=== PATIENT | male | born 1950 | race African-American/Black ===

== ENCOUNTER 2019-07-08 02:36 | Inpatient (IN) | payer BC, MEDICARE ==
[2019-07-08 02:54] LABS: #Basophils 0.1 thou/uL (0.0-0.2); #Eosinphils 0.2 thou/uL (0.0-0.7); #Lymphocytes 2.7 thou/uL (1.20-3.40); #Neutrophils 5.4 thou/uL (1.40-6.50); %Basophils 1.3 % (0.0-1.0); %Eosinophils 2.4 % (0.0-10.0); %Lymphocytes 28.2 % (21.0-51.0); %Monocytes 10.5 % (0.0-10.0); %Neutrophils 57.6 % (42.0-75.0); Hemoglobin 13.7 g/dL (14.0-18.0); Mean Corpuscular HGB CONC 34.2 g/dL (32.0-36.0); Mean Corpuscular Hemoglobin 27.5 pg (27.0-31.0); Mean Corpuscular Volume 80.4 fL (78.0-98.0); Mean Platelet Volume 8.4 fL (7.4-10.4); Platelet Count 318 thou/uL (130-400); RBC Distribution Width 14.2 % (11.5-14.5); Red Blood Cell (RBC) Count 4.97 mill/uL (4.70-6.10); White Blood Cell (WBC) Count 9.4 thou/uL (4.8-10.8)
[2019-07-08 03:07] LABS: INR-International Normal Ratio 0.8; PTT 28.7 SEC (22.9-36.1); Prothrombin Time 11.5 SEC (12.0-14.7)
[2019-07-08 03:08] LABS: ALT (SGPT) 20 U/L (8-55); AST (SGOT) 21 U/L (5-34); Albumin 4.3 g/dL (3.4-4.8); Alkaline Phosphatase 84 U/L (40-110); Anion Gap 15 mmol/L (10-20); BUN (Urea Nitrogen) 17 mg/dL (8.4-25.7); Bilirubin, Total Less than 0.2 mg/dL (0.2-1.2); CK (CPK) 282 U/L (30-200); Calc. Creatinine Clearance 0 mL/min (70-130); Calcium 8.9 mg/dL (7.8-10.44); Carbon Dioxide 18 mmol/L (23-31); Chloride 111 mmol/L (98-107); Estimated GFR-MDRD 72; Globulin 2.9 g/dL (2.4-3.5); Glucose 111 mg/dL (80-115); Protein, Total 7.2 g/dL (5.8-8.1); Sodium 140 mmol/L (136-145)
[2019-07-08] MEDS ORDERED: Aspirin 325 MG TAB ONE (04:21)
--- NOTE | 2019-07-08 05:12 | HP ---
CHIEF COMPLAINT: Left-sided numbness and weakness. HISTORY OF PRESENT ILLNESS: Mr. Pickett is a 69-year-old male with past medical history of hypertension, not on any medications, cigarette smoker, presented to the emergency room with left-sided numbness which started around 9:00 p.m. last night. Apparently, the patient reports that he later went to bed and then woke up at 1 and was not able to get out of bed. He denies vision changes or speech difficulties or facial numbness or tingling. Initially in the ER, his blood pressure was 180/110, spontaneously it went down to 150/90. Workup in the emergency room including CT of the brain and CTA of brain and neck, no acute finding. The patient symptoms improved in the ER. According to him, his symptoms have been coming and going since started last night. The patient is being in the hospital for further management. PAST MEDICAL HISTORY: Hypertension, not on any medications. PAST SURGICAL HISTORY: Colonoscopy. SOCIAL HISTORY: He smokes half pack per day. Drinks alcohol socially. FAMILY HISTORY: Mother had a stroke in her 70s. ALLERGIES: NO KNOWN ALLERGIES. HOME MEDICATIONS: None. REVIEW OF SYSTEMS: Review of 14 systems negative except what is mentioned in the history of present illness. PHYSICAL EXAMINATION: GENERAL: The patient is awake, alert, does not appear to be in acute distress. VITAL SIGNS: Blood pressure 173/95, pulse is 82, respiratory rate is 16, pulse oximetry is 96% on room air, temperature 98.5. HEAD AND NECK: Normocephalic, atraumatic. NECK: Supple. No JVD. CHEST: Fair bilateral air entry. HEART: S1, S2. Regular. ABDOMEN: Soft, nontender. Bowel sounds present. NEUROLOGIC: Awake, alert, and oriented x3. Motor strength 4/5 left upper extremity, 4/5 left lower extremity, 5/5 right upper extremity, 5/5 right lower extremity. Sensation intact. PSYCHIATRIC: Normal mood. EXTREMITIES: No clubbing, no cyanosis. GENITOURINARY: No suprapubic tenderness. No flank tenderness. LABORATORY DATA: CT brain, CTA of brain and neck reported as no acute finding as per ER physician. Labs reviewed. CBC reviewed, unremarkable. ASSESSMENT AND PLAN: 1. CVA, acute?/TIA? 2. Hypertension. 3. Cigarette smoker. PLAN: 1. Admit. 2. Tele monitoring. 3. Frequent neuro checks. 4. Aspirin. 5. Monitor blood pressure. 6. Check lipid profile. 7. Statin. 8. PT/OT eval in a.m. 9. Consult Neurology in a.m. for evaluation and further recommendations. 10. 2D echo. 11. MRI of the brain. 12. DVT prophylaxis as appropriate. 13. Expected length of stay, at least 1 midnight if patient is stable and further workup negative. Job ID: [id number]
[2019-07-08 07:15] VITALS: BMI 25.3
--- NOTE | 2019-07-08 08:32 | CT ---
PRELIMINARY REPORT/[facility]/EMERGENCY AFTER HOURS PROCEDURE Receipt of this report by the clinical staff was confirmed with Preeti Lyons MD by Tulio Sorensen on Jul 08, 2019 03:13:00 CDT. Addendum electronically signed by Rafaela Sorensen on July 08, 2019 3:13:38 AM CDT EXAM: CT Head Without Intravenous Contrast. CLINICAL HISTORY: Gunjan presents to the ED with c/o left arm and left leg numbness/tingling onset at 2100 last night. Pt reports he later went to bed and then woke up at 0100 and wasn't able to get out of bed. Pt denies vision changes, speech difficulties, or facial numbness/tingling. Pt reports he smokes. TECHNIQUE: Axial computed tomography images of the head/brain without intravenous contrast. COMPARISON: None provided. FINDINGS: BRAIN: No acute intraparenchymal hemorrhage. No mass lesion. No CT evidence for acute territorial inf arct. No midline shift or extra-axial collection. Subcortical and periventricular white matter hypodensities. Likely prior lacunar infarcts in the deep santoyo matter. VENTRICLES: No hydrocephalus. ORBITS: The orbits are unremarkable. SINUSES AND MASTOIDS: Opacification of the right maxillary sinus. The paranasal sinuses and mastoid air cells are otherwise clear. SOFT TISSUES: No significant facial or scalp soft tissue swelling evident. No radiopaque foreign body is seen. BONES: No acute skull fracture. IMPRESSION: No acute intracranial abnormality. No CT evidence of large territorial infarct. Recommend MRI for f urther evaluation Sequela of chronic small vessel ischemic disease with likely prior lacunar infarcts in the right basa l ganglia and left centrum semiovale. ELECTRONICALLY SIGNED BY: Thierno Boudreaux DO Jul 08, 2019 3:11:44 AM CDT This report is intended for review by the ordering physician only, in accordance of law. If you recei ve this report in error, please call [facility] at [phone]. FINAL REPORT CT head noncontrast 07/08/2019 performed on emergency basis at 0252 hours HISTORY: Left arm and leg numbness. Tingling. COMPARISON: 03/05/2006. FINDINGS: Agree with the preliminary report by Dr. Boudreaux from [facility]. No acute intracranial abnormalities are apparent. Since the prior study, lacunar infarcts in the basal ganglia and deep periventricular white matter have developed and the right posterior frontal peripheral white matter. There is no mass effect. Opacification of the partially visualized right maxillary sinus. Motion artifact at the brain base. Code QA. Transcribed Date/Time: 07/08/2019 8:44 AM
--- NOTE | 2019-07-08 08:32 | RAD ---
Chest one view HISTORY: CVA. Dyspnea. FINDINGS: No comparison. Cardiac silhouette is magnified by projection. Pulmonary vasculature is unre markable. Mediastinum is midline with aortic calcification. No lobar consolidation or evidence of pneumothorax. radiation monitor leads overlie the chest. IMPRESSION: Atherosclerosis. No active cardiopulmonary abnormalities are otherwise demonstrated.
--- NOTE | 2019-07-08 08:37 | CT ---
PRELIMINARY REPORT/[facility]/EMERGENCY AFTER HOURS PROCEDURE Receipt of this report by the clinical staff was confirmed with Preeti Lyons MD by Tulio Sorensen on Jul 08, 2019 03:16:00 CDT. Addendum electronically signed by Rafaela Sorensen on July 08, 2019 3:16:07 AM CDT EXAM: CTA Head and Neck with Intravenous Contrast. CLINICAL HISTORY: Gunjan presents to the ED with c/o left arm and left leg numbness/tingling onset at 2100 last night. Pt reports he later went to bed and then woke up at 0100 and wasn't able to get out of bed. Pt denies vision changes, speech difficulties, or facial numbness/tingling. Pt reports he smokes. TECHNIQUE: Axial CTA images of the head and neck performed with intravenous contrast. MIP reconstructed images w ere created and reviewed. Note: Per PQRS, the description of internal carotid artery percent stenosis, including 0 percent or n ormal exam, is based on [place] Symptomatic Carotid Endarterectomy Trial (NASCET) criteria. CONTRAST: With; ISOVUE 370,100mL COMPARISON: None provided. FINDINGS: CTA NECK: COMMON CAROTID ARTERIES No significant stenosis. No dissection or occlusion. INTERNAL CAROTID ARTERIES No stenosis by NASCET criteria. No dissection or occlusion. VERTEBRAL ARTERIES No significant stenosis. No dissection or occlusion. CTA HEAD: ANTERIOR CEREBRAL ARTERIES No significant stenosis. No occlusion. No aneurysm. MIDDLE CEREBRAL ARTERIES No significant stenosis. No occlusion. No aneurysm. POSTERIOR CEREBRAL ARTERIES No significant stenosis. No occlusion. No aneurysm. BASILAR ARTERY No significant stenosis. No occlusion. No aneurysm. OTHER: SOFT TISSUES No acute finding. No masses or lymphadenopathy. BONES No acute osseous abnormality. Right maxillary sinus opacification. IMPRESSION: Unremarkable CTA of the head and neck. ELECTRONICALLY SIGNED BY: Thierno Boudreaux DO Jul 08, 2019 3:13:38 AM CDT This report is intended for review by the ordering physician only, in accordance of law. If you recei ve this report in error, please call [facility] at [phone]. FINAL REPORT CT arteriogram neck with IV contrast and 3-D imaging CT arteriogram head with IV contrast and 3-D imaging CT brain with IV contrast 07/08/2019 performed on emergency basis at 0258 hours HISTORY: CVA. Left body numbness and tingling. FINDINGS: Agree with the preliminary report by Dr. Boudreaux from [facility]. No acute vascular abno rmalities are apparent. No enhancing brain lesions. Incidental note is made of an old, partially healed injury of the left clavicular head and very heter ogeneous low density prominence of the thyroid gland which may represent a nodular goiter. Code QA. Transcribed Date/Time: 07/08/2019 8:48 AM
[2019-07-08] MEDS: Aspirin 325 mg Enteric Coated Tablet PO SCH (09:26)
[2019-07-08] MEDS: Heparin 5,000 UNITS/ML VIAL SC SCH ×2 (09:26→20:56)
--- NOTE | 2019-07-08 12:27 | MRI ---
Exam: Brain MRI without IV contrast: HISTORY: Left arm and leg numbness and tingling left-sided weakness, TIA versus stroke There are several very small punctate foci of increased signal on diffusion-weighted images in the ri ght basal ganglia and paraventricular region, the largest of which is approximately 1 cm in size with abnormal lower signal on ADC map evidence for several very small foci of acute infarct. Old left centrum semiovale lacunar infarct. Atrophy and chronic white matter ischemic change. Right maxillary sinus mucosal disease as well as changes in the sphenoid sinuses and less marked changes in the ethmoid sinuses. Opacification of the right mastoid. IMPRESSION: Several small punctate foci of acute infarct changes in the right basal ganglia and periventricular r egion. Sinus mucosal disease. Right mastoid abnormal opacification. No mass or bleed or other acute process.
--- NOTE | 2019-07-08 12:41 | CON ---
DATE OF TELEMEDICINE CONSULTATION: 07/08/2019 CHIEF COMPLAINT: Numbness and weakness. HISTORY OF PRESENT ILLNESS: The patient is a 69-year-old man, who is known to be hypertensive. He has poor compliance with blood pressure medications and has not been monitoring his blood pressure. Per , the patient developed left arm and leg numbness and he felt it about the same since onset yesterday and the numbness comes and goes. He never had a previous CVA. His symptoms started around 9 p.m. last night and he woke up at 1 a.m., was unable to get out of bed. At the time he presented, he was not a candidate for tPA per primary admitting note. At this time, the patient has had deficit on the left side since last night. PREVIOUS MEDICAL HISTORY: Hypertension. No diabetes or hypercholesterolemia. PAST SURGICAL HISTORY: Colonoscopy and polyp removal. FAMILY HISTORY: He has four sisters and four brothers, two brothers , one had leukemia, one has cancer. The one with leukemia in his 30s. Another brother at 65 from cancer. Mother at 77 from cancer. Father at 77 from lung cancer. The patient has 2 children, 40 and 47, 40 year old son has Crohn disease. SOCIAL HISTORY: He is a nonsmoker. No alcohol use. Lives with his . ALLERGIES: NO KNOWN DRUG ALLERGIES. MEDICATIONS: At home, none. REVIEW OF SYSTEMS: PULMONARY: Negative for shortness of breath and/or cough. GI: Negative for nausea, vomiting, or diarrhea. NEUROLOGIC: Positive for weakness and numbness. DERMATOLOGIC: Negative for skin changes. HEMATOLOGIC: Negative for bleeding diathesis. OPHTHALMOLOGIC: Negative for any visual deficit. LABORATORY DATA: His lab workup; white count 9.4, hemoglobin 13.7, hematocrit 39.9, and platelet count 318. Sodium 140, potassium 4, chloride 111, bicarb 18, BUN 17, creatinine 1.21, and glucose 111. CPK 282. Lipid profile is still pending and his CT of the head was completed and CT did not show any acute infarct or bleed. He is pending MRI. He does have lacunes in the basal ganglia and deep periventricular white matter and also the right posterior frontal periventricular white matter changes and CT angiogram was also reviewed and the patient's CT angiogram did not show any significant vaso-occlusive disease and echocardiogram was also completed and no significant abnormalities were present. The patient is pending MRI at the time of dictation and my visit with him. PHYSICAL EXAMINATION: VITAL SIGNS: Temperature 98.3, respiratory rate 15, O2 saturations 96%, blood pressure 150/94, and pulse is 70. GENERAL APPEARANCE: Well-built, well-nourished man, who is very pleasant. CHEST: Clear vesicular breathing. CARDIOVASCULAR: S1 and S2 heard. No murmurs. ABDOMEN: Soft. No organomegaly noted. NEUROLOGIC: Higher intellectual functions, normal orientation to time, place, and person. Appropriate conversation. Cranial nerves 2 through 12 normal extraocular movements. Pupil size was 2 mm bilaterally. He had left facial droop. Normal sensation of face. Normal hearing bilaterally. Motor examination, bulk normal. Tone decreased on the left side. Strength 2/5 proximally in the left upper extremity and distal 0/5, left lower extremity proximal and distal were 1/5. Diminished deep tendon reflexes throughout. Muscle groups tested are deltoid, biceps, triceps, wrist extension and flexion, finger extension and flexion, and iliopsoas, hamstrings, quadriceps, ankle dorsiflexion, and plantar flexion bilaterally. Sensory examination decreased sensation on the left face and left upper and lower extremities mainly. Cerebellar, normal on the right side and unable to assess on the left side due to weakness. IMPRESSION: The patient with history of sudden-onset left-sided numbness and weakness, who presented to the ER quite late and there was no vascular occlusion. He did not receive IV tPA and he has significant left arm and leg weakness with a facial droop. This is like along with some numbness. This is likely an internal capsule infarct. They are currently pending MRI. Treatment would be prevention and primarily conservative therapy. RECOMMENDATION: Consult PM and R for placement for rehab. Suggest aspirin with statin for stroke prophylaxis and blood pressure control. Please call me if you have further questions. Job ID: [id number] MTDD
[2019-07-08] MEDS ORDERED: Nicotine 21 MG PATCH TD SCH (12:45)
[2019-07-08] MEDS ORDERED: Iopamidol 370 76% 100 ML VIAL ONE (14:33)
[2019-07-08] MEDS ORDERED: Acetaminophen 325 MG TAB PO PRN (19:52)
[2019-07-08] MEDS: Atorvastatin Calcium 40 MG TAB PO SCH (20:56)
[2019-07-08] MEDS ORDERED: Melatonin 3 MG TAB PO PRN (21:17)
[2019-07-09 05:35] LABS: Cardiac Risk 4.2 (Less than 4.5)
[2019-07-09] MEDS: Nicotine 21 MG PATCH TD SCH (09:42)
[2019-07-09] MEDS: Aspirin 325 mg Enteric Coated Tablet PO SCH (09:42)
[2019-07-09] MEDS: Heparin 5,000 UNITS/ML VIAL SC SCH ×2 (09:42→20:25)
--- NOTE | 2019-07-09 17:06 | PDOC.HOSPP ---
- Subjective Encounter Date: 07/09/19 Encounter Time: 10:20 Subjective: pt up in bed no events overnight. - Objective Vital Signs & Weight: Vital Signs (12 hours) Temp Pulse Pulse Pulse Resp BP BP 07/09/19 15:07 98.8 F 84 16 07/09/19 11:55 78 80 145/98 H 181/105 H 07/09/19 11:09 98.7 F 82 16 07/09/19 10:14 78 80 145/98 H 181/105 H 07/09/19 08:00 97.8 F 80 16 BP Pulse Ox 07/09/19 15:07 142/92 H 97 07/09/19 11:55 07/09/19 11:09 149/93 H 98 07/09/19 10:14 07/09/19 08:00 166/98 H 98 Weight Weight 192 lb 4.8 oz I&O: 07/08/19 07/09/19 07/10/19 06:59 06:59 06:59 Intake Total 300 Balance 300 Result Diagrams: 07/08/19 02:40 07/08/19 02:40 Hospitalist ROS - Review of Systems Respiratory: denies: cough, dry, shortness of breath, hemoptysis, SOB with excertion, pleuritic pain, sputum, wheezing, other Cardiovascular: denies: chest pain, palpitations, orthopnea, paroxysmal noc. dyspnea, edema, light headedness, other Gastrointestinal: denies: nausea, vomiting, abdominal pain, diarrhea, constipation, melena, hematochezia, other - Medication Medications: Active Medications Generic Name Dose Route Start Last Admin Trade Name Kelq PRN Reason Stop Dose Admin Acetaminophen 650 mg 07/08/19 19:52 07/08/19 20:56 Tylenol PO 650 mg Q6H PRN Administration Headache, Aches or Pain Aspirin 325 mg 07/08/19 09:00 07/09/19 09:42 Ecotrin PO 325 mg DAILY CESAR Administration Atorvastatin Calcium 40 mg 07/08/19 21:00 07/08/19 20:56 Lipitor PO 40 mg HS CESAR Administration Heparin Sodium (Porcine) 5,000 units 07/08/19 09:00 07/09/19 09:42 Heparin SC 5,000 units Q12HR CESAR Administration Melatonin 3 mg 07/08/19 21:17 07/08/19 21:38 Melatonin PO 3 mg HS PRN Administration Insomnia Nicotine 21 mg 07/09/19 09:00 07/09/19 09:42 Nicoderm Patch TD 21 mg DAILY CEASR Administration - Exam ENT: negative: normocephalic atraumatic, no oropharyngeal lesions, moist mucosa , dry oral mucosa Neck: negative: supple, symmetric, no JVD, no thyromegaly, no lymphadenopathy, no carotid bruit, JVD Heart: negative: RRR, no murmur, no gallops, no rubs, normal peripheral pulses, irregular, diminshed peripheral pulses, murmur present, II/IV, III/IV Respiratory: negative: CTAB, no wheezes, no rales, no ronchi, normal chest expansion, no tachypnea, normal percussion, rales, rhonchi, tachypneic, wheezes Hosp A/P (1) Stroke Code(s): I63.9 - CEREBRAL INFARCTION, UNSPECIFIED Status: Acute (2) HTN (hypertension) Code(s): I10 - ESSENTIAL (PRIMARY) HYPERTENSION Status: Acute (3) Hypercholesteremia Code(s): E78.00 - PURE HYPERCHOLESTEROLEMIA, UNSPECIFIED Status: Acute - Plan pt on asa and statin. will continue. pt's mri indicated several small punctate foci. will ask neurology if we need to consult cardio for possible embolic stroke.
[2019-07-09] MEDS: Atorvastatin Calcium 40 MG TAB PO SCH (20:25)
[2019-07-09] MEDS: Melatonin 3 MG TAB PO PRN (21:36)
[2019-07-10] MEDS: Heparin 5,000 UNITS/ML VIAL SC SCH ×2 (08:51→20:35)
[2019-07-10] MEDS: Aspirin 325 mg Enteric Coated Tablet PO SCH (08:51)
[2019-07-10] MEDS: Nicotine 21 MG PATCH TD SCH (08:51)
[2019-07-10] MEDS: Atorvastatin Calcium 40 MG TAB PO SCH (20:34)
[2019-07-10] MEDS: Melatonin 3 MG TAB PO PRN (20:35)
--- NOTE | 2019-07-11 08:30 | PDOC.HOSPP ---
- Subjective Encounter Date: 07/10/19 Encounter Time: 10:00 Subjective: pt up at the side of the bed with PT. He has no complains. - Objective Vital Signs & Weight: Vital Signs (12 hours) Temp Pulse Resp BP BP Pulse Ox 07/11/19 07:17 97.7 F 88 16 147/92 H 93 L 07/11/19 04:38 98.6 F 86 16 127/83 100 07/10/19 23:39 98.3 F 88 16 140/95 H 96 07/10/19 20:35 95 Weight Weight 192 lb 4.8 oz I&O: 07/10/19 07/11/19 07/12/19 06:59 06:59 06:59 Intake Total 1575 780 Output Total 650 350 Balance 925 430 Result Diagrams: 07/08/19 02:40 07/08/19 02:40 Hospitalist ROS - Review of Systems Cardiovascular: denies: chest pain, palpitations, orthopnea, paroxysmal noc. dyspnea, edema, light headedness, other Gastrointestinal: denies: nausea, vomiting, abdominal pain, diarrhea, constipation, melena, hematochezia, other Genitourinary: denies: dysuria, frequency, incontinence, hematuria, retention, other - Medication Medications: Active Medications Generic Name Dose Route Start Last Admin Trade Name Freq PRN Reason Stop Dose Admin Acetaminophen 650 mg 07/08/19 19:52 07/08/19 20:56 Tylenol PO 650 mg Q6H PRN Administration Headache, Aches or Pain Aspirin 325 mg 07/08/19 09:00 07/10/19 08:51 Ecotrin PO 325 mg DAILY CESAR Administration Atorvastatin Calcium 40 mg 07/08/19 21:00 07/10/19 20:34 Lipitor PO 40 mg HS CESAR Administration Heparin Sodium (Porcine) 5,000 units 07/08/19 09:00 07/10/19 20:35 Heparin SC 5,000 units Q12HR CESAR Administration Melatonin 9 mg 07/09/19 21:18 07/10/19 20:35 Melatonin PO 9 mg HSPRN PRN Administration Insomnia Nicotine 21 mg 07/09/19 09:00 07/10/19 08:51 Nicoderm Patch TD 21 mg DAILY CESAR Administration - Exam Heart: negative: RRR, no murmur, no gallops, no rubs, normal peripheral pulses, irregular, diminshed peripheral pulses, murmur present, II/IV, III/IV Respiratory: negative: CTAB, no wheezes, no rales, no ronchi, normal chest expansion, no tachypnea, normal percussion, rales, rhonchi, tachypneic, wheezes Gastrointestinal: negative: soft, non-tender, non-distended, normal bowel sounds , no palpable masses, no hepatomegaly, no splenomegaly, no bruit, no guarding, no rigidity, tender to palpation, distended, diminished bowl sounds, voluntary guarding Extremities - other findings: left side weakness Hosp A/P (1) Stroke Code(s): I63.9 - CEREBRAL INFARCTION, UNSPECIFIED Status: Acute (2) HTN (hypertension) Code(s): I10 - ESSENTIAL (PRIMARY) HYPERTENSION Status: Acute (3) Hypercholesteremia Code(s): E78.00 - PURE HYPERCHOLESTEROLEMIA, UNSPECIFIED Status: Acute - Plan pt on asa and statin. will continue. pt's mri indicated several small punctate foci. will ask neurology if we need to consult cardio for possible embolic stroke. 07/09 per neurology stroke unlikely due to cardiac causes. will continue asa/ statin. He is SR on the monitor.
[2019-07-11] MEDS: Aspirin 325 mg Enteric Coated Tablet PO SCH (09:41)
[2019-07-11] MEDS: Nicotine 21 MG PATCH TD SCH (09:41)
[2019-07-11] MEDS: Heparin 5,000 UNITS/ML VIAL SC SCH (09:41)
[2019-07-11] MEDS ORDERED: Docusate 100 MG CAP PO SCH ×3 (10:43→21:00)
[2019-07-11] MEDS ORDERED: Polyethylene Glycol 3350 17 GM Packet PO SCH ×2 (10:44→11:15)
[2019-07-11 11:28] VITALS: BP 141/83; TEMP 98.6
--- NOTE | 2019-07-11 20:48 | DIS ---
DATE OF ADMISSION: 07/08/2019 DATE OF DISCHARGE: 07/11/2019 DISCHARGE DIAGNOSES: As of the followin. 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 2. Hypertension. 3. Hypercholesterolemia. HOSPITAL COURSE: The patient is a 69-year-old male who initially presented to the hospital with complaints of left-sided numbness and weakness. At this time, he underwent a stroke protocol including CTA, which was negative. The patient was put on aspirin and statin and at this time, Neurology was consulted. The patient underwent a stroke workup. Echo indicated an EF of 50% to 55% with mild mitral regurgitation, mild tricuspid regurgitation. He also had an MRI of brain, which indicated several small punctate foci of acute infarct changes in the right basal ganglia and periventricular region. At this time, I did talk with Neurology who stated that most likely if the patient is in sinus rhythm, which he is, this is most likely secondary to hypertension related. The patient again remained to be in sinus rhythm throughout the hospital stay. He was then discharged to an inpatient rehabilitation. His CTA indicated was unremarkable. HOME MEDICATIONS: Will be as of the followin. Aspirin 325 daily. 2. Atorvastatin 40 mg daily. 3. Nicotine patch. 4. MiraLAX. 5. Tums as needed. PHYSICAL EXAMINATION: VITAL SIGNS: Temperature of 98.6, heart rate 85, respirations 16, O2 saturation 93% on room air, and blood pressure 141/83. GENERAL: He is awake, alert, and oriented x3. Does not appear in distress. CV: S1 and S2 present. No murmurs, rubs, or gallops. LUNGS: Clear to auscultation. NEUROLOGIC: Neurovascular mccarthy, he does have significant left-sided deficits and his diet has been made to soft given the fact that he is having difficulty time chewing on his left side. Job ID: [id number]
[2019-07-12] MEDS ORDERED: Polyethylene Glycol 3350 17 GM Packet PO SCH (09:00)
== END 2019-07-11 13:24 | DRG 65 ==
LOC: ERS 02:36 → 2SE 04:34 → OBSVTOIN 19:13
PROVIDERS: ADMIT Internal Medicine; ATTEND Internal Medicine
DX: I63.9 Cerebral infarction, unspecified (principal); G81.94 Hemiplegia, unspecified affecting left nondominant side; I10 Essential (primary) hypertension; E78.00 Pure hypercholesterolemia, unspecified; I08.1 Rheumatic disorders of both mitral and tricuspid valves; F17.210 Nicotine dependence, cigarettes, uncomplicated; R20.0 Anesthesia of skin; R29.810 Facial weakness; R40.2362 Coma scale, best motor response, obeys commands, at arrival to emergency department; R40.2142 Coma scale, eyes open, spontaneous, at arrival to emergency department; R40.2252 Coma scale, best verbal response, oriented, at arrival to emergency department; R29.707 NIHSS score 7
CPT/HCPCS: 36415; 36416; 70450; 70496; 70498; 70551; 71045; 80053; 80061; 82550; 84484; 85025; 85610; 85730; 93005; 93306; J1644; Q9967

== ENCOUNTER 2019-09-28 10:28 | Outpatient (CLI) | payer MEDICARE ==
--- NOTE | 2019-09-28 12:23 | CT ---
LOW DOSE CT SCAN OF THE CHEST WITHOUT IV CONTRAST FOR LUNG CANCER SCREENING: Date: 09/28/2019 HISTORY: 69-year-old male with nicotine dependence with current use. FINDINGS: There is a 3.0 mm peripheral solid parenchymal nodule in the right upper lobe. A tiny calcified granu vishal is seen in the left lower lobe. Emphysematous changes are seen with upper lobe dominance. No pneumothoraces, and no pleural or pericardial effusions are seen. There are calcified lymph nodes in the mediastinum and hilar regions. There are vascular calcifications without evidence of aneurysma l dilatation of the thoracic aorta. There are degenerative changes in the spine. A right thyroid lobe nodule is present. IMPRESSION: Lung-RADS Category 2: Benign. Category S: Thyroid nodule should be evaluated with ultrasound. RECOMMENDATION: A follow-up LDCT of the chest is recommended in 12 months. POS: [facility]
== END 2019-09-28 10:29 | disposition home or self-care (01) ==
LOC: BICCT 10:28
PROVIDERS: ATTEND Family Medicine
DX: F17.210 Nicotine dependence, cigarettes, uncomplicated (principal); E04.1 Nontoxic single thyroid nodule
CPT/HCPCS: G0297

== ENCOUNTER 2019-12-24 14:55 | Outpatient (CLI) | payer MEDICARE ==
--- NOTE | 2019-12-24 15:57 | RAD ---
LEFT FOOT 3 VIEWS: Date: 12/24/2019 HISTORY: Left foot swelling and pain. FINDINGS: Diffuse bone demineralization with prominent osteoarthrosis changes, particularly at the first metata rsophalangeal joint. No overt acute fracture or dislocation. Evidence for vascular calcifications. 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 POS: [facility]
== END 2019-12-24 14:56 | disposition home or self-care (01) ==
LOC: SCSRAD 14:55
PROVIDERS: ATTEND Nurse Practitioner Family
DX: M79.672 Pain in left foot (principal); M19.072 Primary osteoarthritis, left ankle and foot; M81.0 Age-related osteoporosis without current pathological fracture
CPT/HCPCS: 36415; 84550

== ENCOUNTER 2021-04-11 11:37 | Inpatient (IN) | payer MEDICARE ==
[2021-04-11 12:15] LABS: ALT (SGPT) 16 U/L (8-55); AST (SGOT) 18 U/L (5-34); Albumin 3.8 g/dL (3.4-4.8); Alkaline Phosphatase 83 U/L (40-110); Anion Gap 14 mmol/L (10-20); BUN (Urea Nitrogen) 11 mg/dL (8.4-25.7); Bilirubin, Total 0.2 mg/dL (0.2-1.2); CK (CPK) 198 U/L (30-200); Calc. Creatinine Clearance 0 mL/min (70-130); Calcium 9.1 mg/dL (7.8-10.44); Carbon Dioxide 17 mmol/L (23-31); Chloride 113 mmol/L (98-107); Globulin 2.8 g/dL (2.4-3.5); Glucose 83 mg/dL (83-110); Lipase 69 U/L (8-78); Potassium 4.1 mmol/L (3.5-5.1); Protein, Total 6.6 g/dL (5.8-8.1); Sodium 140 mmol/L (136-145)
[2021-04-11] MEDS ORDERED: Clopidogrel Bisulfate 75 MG TAB ONE (12:18)
[2021-04-11] MEDS ORDERED: Aspirin Chewable 81 MG TAB ONE (12:18)
[2021-04-11 12:46] LABS: #Eosinphils 0.2 thou/uL (0.0-0.7); #Lymphocytes 2.2 thou/uL (1.20-3.40); #Monocytes 0.6 thou/uL (0.11-0.59); #Neutrophils 4.6 thou/uL (1.40-6.50); %Basophils 0.3 % (0.0-1.0); %Eosinophils 2.9 % (0.0-10.0); %Lymphocytes 28.5 % (21.0-51.0); %Monocytes 8.1 % (0.0-10.0); %Neutrophils 60.2 % (42.0-75.0); Anisocytosis SLIGHT = 6-15 cells (100X) (0-5/hpf); MDiff Complete? YES; Mean Corpuscular Hemoglobin 23.6 pg (27.0-31.0); Mean Corpuscular Volume 73.7 fL (78.0-98.0); Mean Platelet Volume 8.8 fL (7.4-10.4); Microcytosis SLIGHT = 6-15 cells (100X) (0-5/hpf); Platelet Count 323 thou/uL (130-400); Platelet Morphology Comment Appears Adequate; Polychromasia SLIGHT = 2-3 cells (100X) (0-2/hpf); Red Blood Cell (RBC) Count 4.24 mill/uL (4.70-6.10); White Blood Cell (WBC) Count 7.7 thou/uL (4.8-10.8)
[2021-04-11 12:53] LABS: INR-International Normal Ratio 1.2; Prothrombin Time 14.9 sec (12.0-14.7)
[2021-04-11 12:54] LABS: PTT 32.7 sec (22.9-36.1)
[2021-04-11 13:09] LABS: Bilirubin Negative (Negative); Blood, Urine Negative (Negative); Clarity Clear (Clear); Glucose, Urine (Dipstick) Normal (Negative); Ketone, Urine Negative (Negative); Leukocyte Negative Leu/uL (Negative); Nitrite Negative (Negative); Protein, Urine (Dipstick) Negative (Neg-Trace); Specific Gravity, Urine 1.013 (1.002-1.036); Urobilinogen Normal mg/dL (Less than 2)
[2021-04-11] MEDS ORDERED: hydrALAZINE 20 MG/ML VIAL SLOW IVP PRN (13:17)
[2021-04-11 14:43] LABS: SARS-CoV-2 NAA Rapid Test Not Detected (NotDetected)
[2021-04-11] MEDS: Nicotine 14 MG PATCH TD SCH (16:16)
[2021-04-11 16:20] VITALS: BMI 25.0
[2021-04-11] MEDS: Atorvastatin Calcium 40 MG TAB PO SCH (20:58)
[2021-04-12] MEDS: Melatonin 3 MG TAB PO PRN ×2 (00:22→23:35)
[2021-04-12 06:11] LABS: Cardiac Risk 2.7 (Less than 4.5); Cholesterol 93 mg/dl (< 200 Desired); HDL Cholesterol 35 mg/dL (>60 Neg Risk); LDL Cholesterol, Calculated 45 mg/dL; Magnesium 1.7 mg/dL (1.6-2.6); Triglycerides 67 mg/dL (Less than 150)
[2021-04-12 06:34] LABS: Thyroid Stimulating Hormone 0.54 uIU/mL (0.35-4.94)
[2021-04-12] MEDS ORDERED: Magnesium 2 GM/50 ML 2 GM in Premix Bag 1 BAG IVPB SCH (07:15)
[2021-04-12] MEDS: Folic Acid 1 MG TAB PO SCH (07:57)
[2021-04-12] MEDS ORDERED: Aspirin 81 mg Enteric Coated Tablet PO SCH (09:00)
[2021-04-12] MEDS ORDERED: Clopidogrel Bisulfate 75 MG TAB PO SCH (09:00)
[2021-04-12] MEDS: Nicotine 14 MG PATCH TD SCH (14:30)
[2021-04-12] MEDS: Atorvastatin Calcium 40 MG TAB PO SCH (21:10)
[2021-04-13 05:33] LABS: #Basophils 0.1 thou/uL (0.0-0.2); #Eosinphils 0.2 thou/uL (0.0-0.7); #Lymphocytes 1.7 thou/uL (1.20-3.40); #Monocytes 0.7 thou/uL (0.11-0.59); #Neutrophils 3.7 thou/uL (1.40-6.50); %Basophils 0.8 % (0.0-1.0); %Eosinophils 3.7 % (0.0-10.0); %Lymphocytes 27.2 % (21.0-51.0); %Monocytes 10.7 % (0.0-10.0); %Neutrophils 57.6 % (42.0-75.0); Hemoglobin 9.2 g/dL (14.0-18.0); Mean Corpuscular HGB CONC 32.1 g/dL (32.0-36.0); Mean Corpuscular Hemoglobin 23.4 pg (27.0-31.0); Mean Corpuscular Volume 72.9 fL (78.0-98.0); Mean Platelet Volume 8.7 fL (7.4-10.4); Platelet Count 304 thou/uL (130-400); RBC Distribution Width 17.4 % (11.5-14.5); Red Blood Cell (RBC) Count 3.95 mill/uL (4.70-6.10); White Blood Cell (WBC) Count 6.3 thou/uL (4.8-10.8)
[2021-04-13 06:06] LABS: Anion Gap 9 mmol/L (10-20); BUN (Urea Nitrogen) 12 mg/dL (8.4-25.7); Calc. Creatinine Clearance 75 mL/min (70-130); Calcium 8.6 mg/dL (7.8-10.44); Carbon Dioxide 21 mmol/L (23-31); Chloride 113 mmol/L (98-107); Glucose 97 mg/dL (83-110); Potassium 3.8 mmol/L (3.5-5.1); Sodium 139 mmol/L (136-145)
[2021-04-13] MEDS: Folic Acid 1 MG TAB PO SCH (09:16)
[2021-04-13] MEDS ORDERED: Clopidogrel Bisulfate 75 MG TAB PO SCH (10:30)
[2021-04-13] MEDS ORDERED: Aspirin 81 mg Enteric Coated Tablet PO SCH (10:30)
[2021-04-13] MEDS: Nicotine 14 MG PATCH TD SCH (12:18)
[2021-04-13] MEDS ORDERED: Zolpidem Tartrate 5 MG TAB PO PRN (20:40)
[2021-04-13] MEDS: Atorvastatin Calcium 40 MG TAB PO SCH (21:04)
[2021-04-14 06:32] LABS: #Eosinphils 0.2 thou/uL (0.0-0.7); #Lymphocytes 1.6 thou/uL (1.20-3.40); #Monocytes 0.6 thou/uL (0.11-0.59); #Neutrophils 4.4 thou/uL (1.40-6.50); %Basophils 0.4 % (0.0-1.0); %Lymphocytes 23.3 % (21.0-51.0); %Monocytes 9.4 % (0.0-10.0); %Neutrophils 63.9 % (42.0-75.0); Anion Gap 11 mmol/L (10-20); BUN (Urea Nitrogen) 11 mg/dL (8.4-25.7); Calc. Creatinine Clearance 69 mL/min (70-130); Calcium 8.9 mg/dL (7.8-10.44); Carbon Dioxide 20 mmol/L (23-31); Chloride 111 mmol/L (98-107); Glucose 93 mg/dL (83-110); Hemoglobin 10.2 g/dL (14.0-18.0); Mean Corpuscular HGB CONC 31.4 g/dL (32.0-36.0); Mean Corpuscular Hemoglobin 23.1 pg (27.0-31.0); Mean Corpuscular Volume 73.5 fL (78.0-98.0); Mean Platelet Volume 8.6 fL (7.4-10.4); Platelet Count 321 thou/uL (130-400); Potassium 3.7 mmol/L (3.5-5.1); RBC Distribution Width 17.6 % (11.5-14.5); Red Blood Cell (RBC) Count 4.41 mill/uL (4.70-6.10); Sodium 138 mmol/L (136-145); White Blood Cell (WBC) Count 6.8 thou/uL (4.8-10.8)
[2021-04-14 06:50] LABS: Hemoglobin A1c 5.4 % (4.0-6.0)
[2021-04-14] MEDS: Folic Acid 1 MG TAB PO SCH (08:32)
[2021-04-14] MEDS ORDERED: Aspirin Chewable 81 MG TAB PO SCH (09:00)
[2021-04-14] MEDS ORDERED: Clopidogrel Bisulfate 75 MG TAB PO SCH (09:00)
[2021-04-14 11:50] VITALS: BP 131/70; TEMP 97.5
[2021-04-14] MEDS: Nicotine 14 MG PATCH TD SCH (15:38)
== END 2021-04-14 14:51 | disposition home health service (06) | DRG 64 ==
LOC: ERS 11:37 → ERHOLD 12:36 → NEURO 15:21 → OBSVTOIN 04-12 17:18
PROVIDERS: ADMIT Internal Medicine; ATTEND Nurse Practitioner Family
DX: I63.81 Other cerebral infarction due to occlusion or stenosis of small artery (principal); I62.02 Nontraumatic subacute subdural hemorrhage; I69.354 Hemiplegia and hemiparesis following cerebral infarction affecting left non-dominant side; E78.5 Hyperlipidemia, unspecified; F17.210 Nicotine dependence, cigarettes, uncomplicated; E78.00 Pure hypercholesterolemia, unspecified; D64.9 Anemia, unspecified; E53.8 Deficiency of other specified B group vitamins; I08.3 Combined rheumatic disorders of mitral, aortic and tricuspid valves; Z20.822 Contact with and (suspected) exposure to COVID-19; I69.334 Monoplegia of upper limb following cerebral infarction affecting left non-dominant side; Z79.82 Long term (current) use of aspirin; Z79.899 Other long term (current) drug therapy; I69.398 Other sequelae of cerebral infarction
CPT/HCPCS: 36415; 36416; 70450; 70544; 70551; 71045; 80048; 80053; 80061; 81003; 82550; 82607; 82746; 83036; 83690; 83735; 84443; 84484; 85025; 85610; 85730; 93005; 93306; 93880; 96374; G0378; J3475; U0002

== ENCOUNTER 2021-05-07 07:27 | Outpatient (CLI) | payer MEDICARE | END 2021-05-07 07:28 | disposition home or self-care (01) | LOC: BICULT 07:27 | PROVIDERS: ATTEND Family Medicine | DX: R35.89 Other polyuria (principal); N28.1 Cyst of kidney, acquired; K76.89 Other specified diseases of liver | CPT/HCPCS: 76700; 76856 ==

== ENCOUNTER 2021-09-15 11:02 | Inpatient (IN) | payer MEDICARE ==
[2021-09-15 11:35] LABS: #Basophils 0.1 thou/uL (0.0-0.2); #Eosinphils 0.1 thou/uL (0.0-0.7); #Lymphocytes 2.2 thou/uL (1.20-3.40); #Monocytes 0.7 thou/uL (0.11-0.59); #Neutrophils 5.2 thou/uL (1.40-6.50); %Eosinophils 1.6 % (0.0-10.0); %Lymphocytes 26.9 % (21.0-51.0); %Monocytes 8.3 % (0.0-10.0); %Neutrophils 62.2 % (42.0-75.0); Hemoglobin 7.3 g/dL (14.0-18.0); Mean Corpuscular HGB CONC 29.4 g/dL (32.0-36.0); Mean Corpuscular Hemoglobin 16.1 pg (27.0-31.0); Mean Corpuscular Volume 54.8 fL (78.0-98.0); Mean Platelet Volume 5.2 fL (7.4-10.4); Platelet Count 476 thou/uL (130-400); RBC Distribution Width 22.3 % (11.5-14.5); Red Blood Cell (RBC) Count 4.52 mill/uL (4.70-6.10); White Blood Cell (WBC) Count 8.3 thou/uL (4.8-10.8)
[2021-09-15 11:39] LABS: ALT (SGPT) 10 U/L (8-55); AST (SGOT) 24 U/L (5-34); Albumin 4.1 g/dL (3.4-4.8); Alkaline Phosphatase 72 U/L (40-110); Anion Gap 13 mmol/L (10-20); BUN (Urea Nitrogen) 12 mg/dL (8.4-25.7); Bilirubin, Total 0.2 mg/dL (0.2-1.2); Calc. Creatinine Clearance 0 mL/min (70-130); Calcium 8.8 mg/dL (7.8-10.44); Carbon Dioxide 18 mmol/L (23-31); Chloride 114 mmol/L (98-107); Glucose 81 mg/dL (83-110); INR-International Normal Ratio 1.1; Potassium 4.7 mmol/L (3.5-5.1); Protein, Total 7.1 g/dL (5.8-8.1); Prothrombin Time 13.8 sec (12.0-14.7); Sodium 140 mmol/L (136-145)
[2021-09-15 11:40] LABS: Hypochromia MARKED = >30 cells (100X) (0-5/hpf); MDiff Complete? YES; Microcytosis MARKED = >30 cells (100X) (0-5/hpf); Platelet Morphology Comment Appears Increased; Polychromasia SLIGHT = 2-3 cells (100X) (0-2/hpf); Schistocytes SLIGHT = 2-5 cells (100X) (0-1/hpf); Target Cells SLIGHT = 2-5 cells (100X) (0-1/hpf)
[2021-09-15] MEDS ORDERED: Aspirin Chewable 81 MG TAB ONE (13:23)
[2021-09-15] MEDS ORDERED: hydrALAZINE 20 MG/ML VIAL SLOW IVP PRN (14:46)
[2021-09-15] MEDS ORDERED: Iopamidol-370 76% 500 ML 1 ML ONE (15:18)
[2021-09-15] MEDS: Bupropion 150 MG SR TAB PO SCH (20:41)
[2021-09-15] MEDS: Acetaminophen 325 MG TAB PO PRN (20:47)
[2021-09-15] MEDS ORDERED: traZODone HCl 50 MG TAB PO SCH (21:00)
[2021-09-16 06:02] LABS: Anion Gap 10 mmol/L (10-20); BUN (Urea Nitrogen) 10 mg/dL (8.4-25.7); Calc. Creatinine Clearance 69 mL/min (70-130); Calcium 8.5 mg/dL (7.8-10.44); Carbon Dioxide 21 mmol/L (23-31); Cardiac Risk 2.6 (Less than 4.5); Chloride 113 mmol/L (98-107); Cholesterol 90 mg/dl (< 200 Desired); Glucose 87 mg/dL (83-110); HDL Cholesterol 35 mg/dL (>60 Neg Risk); LDL Cholesterol, Calculated 39 mg/dL; Potassium 3.7 mmol/L (3.5-5.1); Sodium 140 mmol/L (136-145); Triglycerides 79 mg/dL (Less than 150)
[2021-09-16 06:54] LABS: #Basophils 0.1 thou/uL (0.0-0.2); #Eosinphils 0.2 thou/uL (0.0-0.7); #Lymphocytes 1.8 thou/uL (1.20-3.40); #Monocytes 0.6 thou/uL (0.11-0.59); #Neutrophils 3.7 thou/uL (1.40-6.50); %Basophils 0.9 % (0.0-1.0); %Eosinophils 3.5 % (0.0-10.0); %Lymphocytes 28.2 % (21.0-51.0); %Monocytes 8.9 % (0.0-10.0); %Neutrophils 58.5 % (42.0-75.0); Hemoglobin 6.2 g/dL (14.0-18.0); Hypochromia MODERATE=16-30 cells (100X) (0-5/hpf); MDiff Complete? YES; Mean Corpuscular HGB CONC 28.5 g/dL (32.0-36.0); Mean Corpuscular Hemoglobin 15.6 pg (27.0-31.0); Mean Corpuscular Volume 54.5 fL (78.0-98.0); Mean Platelet Volume 5.1 fL (7.4-10.4); Platelet Count 414 thou/uL (130-400); RBC Distribution Width 21.9 % (11.5-14.5); Red Blood Cell (RBC) Count 3.96 mill/uL (4.70-6.10); Target Cells SLIGHT = 2-5 cells (100X) (0-1/hpf); Tear Drops SLIGHT = 2-5 cells (100X) (0-1/hpf); White Blood Cell (WBC) Count 6.3 thou/uL (4.8-10.8)
[2021-09-16] MEDS ORDERED: Aspirin 300 MG Suppository PR SCH (09:00)
[2021-09-16] MEDS ORDERED: Enoxaparin Sodium 40 MG/0.4 ML SYRINGE SC SCH (09:00)
[2021-09-16 09:03] LABS: Reticulocyte Count 1.5 % (0.5-1.5)
[2021-09-16 09:05] LABS: Iron 9 ug/dL (65-175); Iron Binding Capacity, Total 313 mcg/dL (261-462)
[2021-09-16] MEDS: Nicotine 21 MG PATCH TD SCH (09:53)
[2021-09-16] MEDS: Bupropion 150 MG SR TAB PO SCH ×3 (09:53→20:50)
[2021-09-16] MEDS: Sodium Chloride 0.9% 1,000 ML IV SCH (10:05)
[2021-09-16 19:48] LABS: Hemoglobin 7.8 g/dL (14.0-18.0)
[2021-09-16] MEDS: Pantoprazole 40 MG VIAL IVP SCH (20:48)
[2021-09-16] MEDS ORDERED: diphenhydrAMINE 50 MG/ML VIAL IVP PRN (20:55)
[2021-09-16] MEDS: Scopolamine 1.5 mg/72 hour Patch TD SCH (21:21)
[2021-09-17] MEDS: Sodium Chloride 0.9% 1,000 ML IV SCH ×2 (01:22→16:32)
[2021-09-17] MEDS ORDERED: Iron Sucrose Complex 200 MG in Sodium Chloride 0.9% 100 ML IVPB ONE (07:44)
[2021-09-17] MEDS ORDERED: Iron, Sodium Ferric Gluconate 250 MG in Sodium Chloride 0.9% 250 ML 250 ML IVPB SCH (09:00)
[2021-09-17] MEDS: Nicotine 21 MG PATCH TD SCH (09:41)
[2021-09-17] MEDS: Bupropion 150 MG SR TAB PO SCH ×3 (09:41→20:54)
[2021-09-17] MEDS: Pantoprazole 40 MG VIAL IVP SCH ×2 (09:41→20:53)
[2021-09-17] MEDS ORDERED: metroNIDAZOLE 500 MG in Premix Bag 1 BAG IVPB SCH (14:54)
[2021-09-17] MEDS ORDERED: Clindamycin/D5W 600 MG in Premix Bag 1 BAG IVPB SCH (15:00)
[2021-09-17] MEDS: cefTRIAXone\\ROCEPHIN 1 GM in Sodium Chloride 0.9% 100 ML IVPB SCH (16:33)
[2021-09-17] MEDS ORDERED: Lorazepam 2 MG/ML VIAL SLOW IVP SCH ×2 (20:15→21:00)
[2021-09-17] MEDS: metroNIDAZOLE 500 MG in Premix Bag 1 BAG IVPB SCH (21:05)
[2021-09-18] MEDS: Sodium Chloride 0.9% 1,000 ML IV SCH ×3 (00:04→14:44)
[2021-09-18 04:04] LABS: Anion Gap 15 mmol/L (10-20); BUN (Urea Nitrogen) 10 mg/dL (8.4-25.7); Calc. Creatinine Clearance 69 mL/min (70-130); Calcium 8.2 mg/dL (7.8-10.44); Carbon Dioxide 15 mmol/L (23-31); Chloride 116 mmol/L (98-107); Glucose 97 mg/dL (83-110); Sodium 142 mmol/L (136-145)
[2021-09-18 04:53] LABS: #Basophils 0.1 thou/uL (0.0-0.2); #Eosinphils 0.1 thou/uL (0.0-0.7); #Lymphocytes 1.3 thou/uL (1.20-3.40); #Monocytes 1.2 thou/uL (0.11-0.59); #Neutrophils 11.7 thou/uL (1.40-6.50); %Basophils 0.6 % (0.0-1.0); %Eosinophils 0.3 % (0.0-10.0); %Lymphocytes 9.3 % (21.0-51.0); %Monocytes 8.2 % (0.0-10.0); %Neutrophils 81.5 % (42.0-75.0); Anisocytosis MODERATE=16-30 cells (100X) (0-5/hpf); Burr Cells SLIGHT = 2-5 cells (100X) (0-1/hpf); Hemoglobin 8.4 g/dL (14.0-18.0); Hypochromia MODERATE=16-30 cells (100X) (0-5/hpf); MDiff Complete? YES; Mean Corpuscular HGB CONC 29.3 g/dL (32.0-36.0); Mean Corpuscular Hemoglobin 17.2 pg (27.0-31.0); Mean Corpuscular Volume 58.6 fL (78.0-98.0); Mean Platelet Volume 5.4 fL (7.4-10.4); Microcytosis MODERATE=15-30 cells (100X) (0-5/hpf); Platelet Count 386 thou/uL (130-400); Platelet Morphology Comment Appears Adequate; Poikilocytosis SLIGHT = 6-15 cells (100X) (0-5/hpf); Polychromasia SLIGHT = 2-3 cells (100X) (0-2/hpf); RBC Distribution Width 25.6 % (11.5-14.5); Red Blood Cell (RBC) Count 4.89 mill/uL (4.70-6.10); Target Cells SLIGHT = 2-5 cells (100X) (0-1/hpf); White Blood Cell (WBC) Count 14.4 thou/uL (4.8-10.8)
[2021-09-18] MEDS: metroNIDAZOLE 500 MG in Premix Bag 1 BAG IVPB SCH ×3 (05:10→22:21)
[2021-09-18] MEDS ORDERED: Acetaminophen 650 MG Suppository PR SCH ×2 (06:00→21:00)
[2021-09-18] MEDS ORDERED: CEFAZOLIN 2 GM VIAL ONE (11:49)
[2021-09-18] MEDS ORDERED: Sodium Chloride 0.9% 100 ML ONE (11:49)
[2021-09-18] MEDS ORDERED: PROPOFOL 200 MG/20 ML VIAL ONE (11:57)
[2021-09-18] MEDS ORDERED: Lidocaine 1% PF 5 ML VIAL ONE (11:57)
[2021-09-18] MEDS ORDERED: Promethazine HCl 25 MG/ML VIAL IM PRN (12:45)
[2021-09-18] MEDS ORDERED: Ondansetron HCl/PF 4 MG/2 ML Vial IVP PRN (12:45)
[2021-09-18] MEDS ORDERED: Promethazine HCl 25 MG/ML VIAL IVPB PRN (12:45)
[2021-09-18 13:16] VITALS: BMI 22.1
[2021-09-18] MEDS: Bupropion 150 MG SR TAB PO SCH ×2 (14:14→22:22)
[2021-09-18] MEDS: Pantoprazole 40 MG VIAL IVP SCH ×2 (14:14→22:21)
[2021-09-18] MEDS: Nicotine 21 MG PATCH TD SCH (14:14)
[2021-09-18] MEDS: Acetaminophen 325 MG TAB PO PRN (14:41)
[2021-09-18] MEDS: cefTRIAXone\\ROCEPHIN 1 GM in Sodium Chloride 0.9% 100 ML IVPB SCH (14:42)
[2021-09-18 16:15] LABS: Hemoglobin A2 2.4 % (1.8-3.2); Hemoglobin F 0 % (0.0-2.0); Hemoglobin S 29.5 % (0.0)
[2021-09-18] MEDS: Atorvastatin Calcium 40 MG TAB PER TUBE SCH (22:21)
[2021-09-19] MEDS: Sodium Chloride 0.9% 1,000 ML IV SCH (04:39)
[2021-09-19 05:46] LABS: #Eosinphils 0.2 thou/uL (0.0-0.7); #Lymphocytes 1.2 thou/uL (1.20-3.40); #Monocytes 0.9 thou/uL (0.11-0.59); #Neutrophils 9.3 thou/uL (1.40-6.50); %Basophils 0.2 % (0.0-1.0); %Eosinophils 1.8 % (0.0-10.0); %Lymphocytes 10.4 % (21.0-51.0); %Monocytes 7.8 % (0.0-10.0); %Neutrophils 79.8 % (42.0-75.0); Critical Call w/ Read Back 3; Hemoglobin 7.4 g/dL (14.0-18.0); Mean Corpuscular HGB CONC 29.7 g/dL (32.0-36.0); Mean Corpuscular Hemoglobin 17.1 pg (27.0-31.0); Mean Corpuscular Volume 57.7 fL (78.0-98.0); Mean Platelet Volume 5.1 fL (7.4-10.4); Platelet Count 326 thou/uL (130-400); RBC Distribution Width 25.8 % (11.5-14.5); Red Blood Cell (RBC) Count 4.34 mill/uL (4.70-6.10); White Blood Cell (WBC) Count 11.7 thou/uL (4.8-10.8)
[2021-09-19] MEDS: metroNIDAZOLE 500 MG in Premix Bag 1 BAG IVPB SCH ×3 (05:46→20:54)
[2021-09-19 05:48] LABS: Anion Gap 11 mmol/L (10-20); BUN (Urea Nitrogen) 7 mg/dL (8.4-25.7); Calc. Creatinine Clearance 62 mL/min (70-130); Calcium 8.1 mg/dL (7.8-10.44); Carbon Dioxide 20 mmol/L (23-31); Chloride 118 mmol/L (98-107); Glucose 95 mg/dL (83-110); Potassium 3.6 mmol/L (3.5-5.1); Sodium 145 mmol/L (136-145)
[2021-09-19] MEDS: Pantoprazole 40 MG VIAL IVP SCH (08:57)
[2021-09-19] MEDS: Bupropion 150 MG SR TAB PO SCH (08:57)
[2021-09-19] MEDS: Nicotine 21 MG PATCH TD SCH (08:57)
[2021-09-19] MEDS: Aspirin Chewable 81 MG TAB PER TUBE SCH (08:57)
[2021-09-19] MEDS ORDERED: Docusate Sodium 100 MG/10 ML UDCUP PO SCH (12:30)
[2021-09-19] MEDS ORDERED: Docusate Sodium 100 MG/10 ML UDCUP PER TUBE SCH (12:30)
[2021-09-19] MEDS: cefTRIAXone\\ROCEPHIN 1 GM in Sodium Chloride 0.9% 100 ML IVPB SCH (14:54)
[2021-09-19] MEDS: buPROPion 75 MG TAB PER TUBE SCH ×2 (14:54→20:54)
[2021-09-19] MEDS: Docusate Sodium 100 MG/10 ML UDCUP PER TUBE SCH (20:53)
[2021-09-19] MEDS: Scopolamine 1.5 mg/72 hour Patch TD SCH (20:53)
[2021-09-19] MEDS: Atorvastatin Calcium 40 MG TAB PER TUBE SCH (20:54)
[2021-09-19] MEDS: traZODone HCl 50 MG TAB PER TUBE PRN (21:30)
[2021-09-20] MEDS: metroNIDAZOLE 500 MG in Premix Bag 1 BAG IVPB SCH ×3 (05:17→22:10)
[2021-09-20 05:50] LABS: Anion Gap 9 mmol/L (10-20); BUN (Urea Nitrogen) 8 mg/dL (8.4-25.7); Calc. Creatinine Clearance 70 mL/min (70-130); Calcium 8.3 mg/dL (7.8-10.44); Carbon Dioxide 22 mmol/L (23-31); Chloride 117 mmol/L (98-107); Glucose 127 mg/dL (83-110); Potassium 3.6 mmol/L (3.5-5.1); Sodium 144 mmol/L (136-145)
[2021-09-20 05:51] LABS: #Eosinphils 0.3 thou/uL (0.0-0.7); #Lymphocytes 1.1 thou/uL (1.20-3.40); #Neutrophils 7.8 thou/uL (1.40-6.50); %Eosinophils 3.4 % (0.0-10.0); %Lymphocytes 10.6 % (21.0-51.0); %Monocytes 9.4 % (0.0-10.0); %Neutrophils 76.7 % (42.0-75.0); Anisocytosis MODERATE=16-30 cells (100X) (0-5/hpf); Elliptocytes SLIGHT = 2-5 cells (100X) (0-1/hpf); Hemoglobin 7.3 g/dL (14.0-18.0); Hypochromia MODERATE=16-30 cells (100X) (0-5/hpf); MDiff Complete? YES; Mean Corpuscular HGB CONC 30.1 g/dL (32.0-36.0); Mean Corpuscular Hemoglobin 17.6 pg (27.0-31.0); Mean Corpuscular Volume 58.6 fL (78.0-98.0); Mean Platelet Volume 5.1 fL (7.4-10.4); Microcytosis MODERATE=15-30 cells (100X) (0-5/hpf); Platelet Count 309 thou/uL (130-400); Platelet Morphology Comment Appears Adequate; Polychromasia SLIGHT = 2-3 cells (100X) (0-2/hpf); RBC Distribution Width 27.9 % (11.5-14.5); Red Blood Cell (RBC) Count 4.11 mill/uL (4.70-6.10); Target Cells MODERATE= 6-15 cells (100X) (0-1/hpf); Tear Drops SLIGHT = 2-5 cells (100X) (0-1/hpf); White Blood Cell (WBC) Count 10.2 thou/uL (4.8-10.8)
[2021-09-20] MEDS: Acetaminophen 650 MG/20.3 ML UDCUP PER TUBE PRN (07:44)
[2021-09-20] MEDS: Guaifenesin DM 100-10/5 ML UDCUP PER TUBE PRN ×2 (07:45→16:04)
[2021-09-20] MEDS: Aspirin Chewable 81 MG TAB PER TUBE SCH (09:38)
[2021-09-20] MEDS: Ascorbic Acid 500 mg Chewable Tablet PER TUBE SCH (09:38)
[2021-09-20] MEDS: buPROPion 75 MG TAB PER TUBE SCH ×3 (09:38→22:10)
[2021-09-20] MEDS: Docusate Sodium 100 MG/10 ML UDCUP PER TUBE SCH ×2 (09:39→22:11)
[2021-09-20] MEDS: Polyethylene Glycol 3350 17 GM Packet PER TUBE SCH (09:39)
[2021-09-20] MEDS: Nicotine 21 MG PATCH TD SCH (09:39)
[2021-09-20] MEDS: Lansoprazole 3 MG/ML ORAL SUSPENSION PER TUBE SCH (09:39)
[2021-09-20] MEDS: cefTRIAXone\\ROCEPHIN 1 GM in Sodium Chloride 0.9% 100 ML IVPB SCH (15:39)
[2021-09-20] MEDS: Atorvastatin Calcium 40 MG TAB PER TUBE SCH (22:10)
[2021-09-20] MEDS: traZODone HCl 50 MG TAB PER TUBE PRN (22:10)
[2021-09-21] MEDS: metroNIDAZOLE 500 MG in Premix Bag 1 BAG IVPB SCH ×3 (05:02→23:16)
[2021-09-21 05:29] LABS: #Eosinphils 0.4 thou/uL (0.0-0.7); #Lymphocytes 1.1 thou/uL (1.20-3.40); #Monocytes 0.8 thou/uL (0.11-0.59); %Basophils 0.5 % (0.0-1.0); %Eosinophils 4.4 % (0.0-10.0); %Lymphocytes 11.5 % (21.0-51.0); %Monocytes 8.8 % (0.0-10.0); %Neutrophils 74.8 % (42.0-75.0); Hemoglobin 7.5 g/dL (14.0-18.0); Mean Corpuscular HGB CONC 31.6 g/dL (32.0-36.0); Mean Corpuscular Hemoglobin 18.3 pg (27.0-31.0); Mean Corpuscular Volume 58.1 fL (78.0-98.0); Mean Platelet Volume 7.4 fL (7.4-10.4); Platelet Count 287 thou/uL (130-400); RBC Distribution Width 32.7 % (11.5-14.5); Red Blood Cell (RBC) Count 4.08 mill/uL (4.70-6.10); White Blood Cell (WBC) Count 9.3 thou/uL (4.8-10.8)
[2021-09-21 05:51] LABS: Anion Gap 9 mmol/L (10-20); BUN (Urea Nitrogen) 8 mg/dL (8.4-25.7); Calc. Creatinine Clearance 77 mL/min (70-130); Calcium 8.4 mg/dL (7.8-10.44); Carbon Dioxide 23 mmol/L (23-31); Chloride 116 mmol/L (98-107); Glucose 96 mg/dL (83-110); Potassium 3.9 mmol/L (3.5-5.1); Sodium 144 mmol/L (136-145)
[2021-09-21] MEDS: Lansoprazole 3 MG/ML ORAL SUSPENSION PER TUBE SCH (10:05)
[2021-09-21] MEDS: Docusate Sodium 100 MG/10 ML UDCUP PER TUBE SCH ×2 (10:06→21:01)
[2021-09-21] MEDS: buPROPion 75 MG TAB PER TUBE SCH ×3 (10:06→20:04)
[2021-09-21] MEDS: Aspirin Chewable 81 MG TAB PER TUBE SCH (10:06)
[2021-09-21] MEDS: Ascorbic Acid 500 mg Chewable Tablet PER TUBE SCH (10:06)
[2021-09-21] MEDS: Polyethylene Glycol 3350 17 GM Packet PER TUBE SCH (10:06)
[2021-09-21] MEDS: Enoxaparin Sodium 40 MG/0.4 ML SYRINGE SC SCH (10:07)
[2021-09-21] MEDS: Nicotine 21 MG PATCH TD SCH (10:07)
[2021-09-21] MEDS: Acetaminophen 650 MG/20.3 ML UDCUP PER TUBE PRN (12:26)
[2021-09-21] MEDS: Guaifenesin DM 100-10/5 ML UDCUP PER TUBE PRN (12:26)
[2021-09-21] MEDS ORDERED: BIOTENE MOUTH SPRAY 44.3 ML PO PRN (13:20)
[2021-09-21] MEDS: cefTRIAXone\\ROCEPHIN 1 GM in Sodium Chloride 0.9% 100 ML IVPB SCH (16:09)
[2021-09-21] MEDS: Atorvastatin Calcium 40 MG TAB PER TUBE SCH (20:04)
[2021-09-21] MEDS: traZODone HCl 50 MG TAB PER TUBE PRN (23:16)
[2021-09-22] MEDS: metroNIDAZOLE 500 MG in Premix Bag 1 BAG IVPB SCH ×2 (05:57→14:44)
[2021-09-22] MEDS: buPROPion 75 MG TAB PER TUBE SCH ×3 (09:34→20:20)
[2021-09-22] MEDS: Aspirin Chewable 81 MG TAB PER TUBE SCH (09:34)
[2021-09-22] MEDS: Enoxaparin Sodium 40 MG/0.4 ML SYRINGE SC SCH (09:34)
[2021-09-22] MEDS: Nicotine 21 MG PATCH TD SCH (09:34)
[2021-09-22] MEDS: Ascorbic Acid 500 mg Chewable Tablet PER TUBE SCH (09:35)
[2021-09-22] MEDS: Lansoprazole 3 MG/ML ORAL SUSPENSION PER TUBE SCH (09:35)
[2021-09-22] MEDS: Polyethylene Glycol 3350 17 GM Packet PER TUBE SCH (09:36)
[2021-09-22] MEDS: Docusate Sodium 100 MG/10 ML UDCUP PER TUBE SCH ×2 (09:36→20:20)
[2021-09-22] MEDS: Guaifenesin DM 100-10/5 ML UDCUP PER TUBE PRN (14:13)
[2021-09-22] MEDS: Acetaminophen 650 MG/20.3 ML UDCUP PER TUBE PRN (17:13)
[2021-09-22] MEDS: Scopolamine 1.5 mg/72 hour Patch TD SCH (20:20)
[2021-09-22] MEDS: Atorvastatin Calcium 40 MG TAB PER TUBE SCH (20:20)
[2021-09-23] MEDS: traZODone HCl 50 MG TAB PER TUBE PRN ×2 (00:33→21:22)
[2021-09-23] MEDS: Nicotine 21 MG PATCH TD SCH (09:06)
[2021-09-23] MEDS: Aspirin Chewable 81 MG TAB PER TUBE SCH (09:06)
[2021-09-23] MEDS: buPROPion 75 MG TAB PER TUBE SCH ×3 (09:06→21:22)
[2021-09-23] MEDS: Ascorbic Acid 500 mg Chewable Tablet PER TUBE SCH (09:06)
[2021-09-23] MEDS: Docusate Sodium 100 MG/10 ML UDCUP PER TUBE SCH ×2 (09:07→22:03)
[2021-09-23] MEDS: Polyethylene Glycol 3350 17 GM Packet PER TUBE SCH (09:08)
[2021-09-23 10:40] LABS: #Eosinphils 0.6 thou/uL (0.0-0.7); #Lymphocytes 1.4 thou/uL (1.20-3.40); #Monocytes 1.1 thou/uL (0.11-0.59); %Basophils 0.4 % (0.0-1.0); %Eosinophils 4.7 % (0.0-10.0); %Lymphocytes 11.4 % (21.0-51.0); %Monocytes 8.9 % (0.0-10.0); %Neutrophils 74.6 % (42.0-75.0); Hemoglobin 8.2 g/dL (14.0-18.0); Mean Corpuscular HGB CONC 28.4 g/dL (32.0-36.0); Mean Corpuscular Hemoglobin 17.5 pg (27.0-31.0); Mean Corpuscular Volume 61.5 fL (78.0-98.0); Mean Platelet Volume 5.8 fL (7.4-10.4); Platelet Count 334 thou/uL (130-400); RBC Distribution Width 29.9 % (11.5-14.5); Red Blood Cell (RBC) Count 4.67 mill/uL (4.70-6.10)
[2021-09-23 11:02] LABS: ALT (SGPT) 24 U/L (8-55); AST (SGOT) 31 U/L (5-34); Albumin 3.4 g/dL (3.4-4.8); Alkaline Phosphatase 56 U/L (40-110); Anion Gap 9 mmol/L (10-20); BUN (Urea Nitrogen) 10 mg/dL (8.4-25.7); Bilirubin, Total 0.2 mg/dL (0.2-1.2); Calc. Creatinine Clearance 70 mL/min (70-130); Calcium 8.8 mg/dL (7.8-10.44); Carbon Dioxide 25 mmol/L (23-31); Chloride 110 mmol/L (98-107); Globulin 2.6 g/dL (2.4-3.5); Glucose 92 mg/dL (83-110); Potassium 4.2 mmol/L (3.5-5.1); Sodium 140 mmol/L (136-145)
[2021-09-23 11:22] LABS: Hypochromia MODERATE=16-30 cells (100X) (0-5/hpf); Microcytosis MARKED = >30 cells (100X) (0-5/hpf); Polychromasia MODERATE = 3-4 cells (100X) (0-2/hpf); Schistocytes SLIGHT = 2-5 cells (100X) (0-1/hpf)
[2021-09-23] MEDS: Enoxaparin Sodium 40 MG/0.4 ML SYRINGE SC SCH (11:50)
[2021-09-23] MEDS: Lansoprazole 3 MG/ML ORAL SUSPENSION PER TUBE SCH ×2 (14:16→14:33)
[2021-09-23] MEDS: Acetaminophen 650 MG/20.3 ML UDCUP PER TUBE PRN (14:55)
[2021-09-23] MEDS: Atorvastatin Calcium 40 MG TAB PER TUBE SCH (21:22)
[2021-09-24] MEDS: buPROPion 75 MG TAB PER TUBE SCH ×3 (09:11→20:42)
[2021-09-24] MEDS: Aspirin Chewable 81 MG TAB PER TUBE SCH (09:11)
[2021-09-24] MEDS: Nicotine 21 MG PATCH TD SCH (09:11)
[2021-09-24] MEDS: Enoxaparin Sodium 40 MG/0.4 ML SYRINGE SC SCH (09:11)
[2021-09-24] MEDS: Docusate Sodium 100 MG/10 ML UDCUP PER TUBE SCH ×2 (09:12→20:42)
[2021-09-24] MEDS: Lansoprazole 3 MG/ML ORAL SUSPENSION PER TUBE SCH (09:12)
[2021-09-24] MEDS: Ascorbic Acid 500 mg Chewable Tablet PER TUBE SCH (09:12)
[2021-09-24] MEDS: Polyethylene Glycol 3350 17 GM Packet PER TUBE SCH (09:12)
[2021-09-24] MEDS: Acetaminophen 650 MG/20.3 ML UDCUP PER TUBE PRN (14:34)
[2021-09-24] MEDS: traZODone HCl 50 MG TAB PER TUBE PRN (20:42)
[2021-09-24] MEDS: Atorvastatin Calcium 40 MG TAB PER TUBE SCH (20:42)
[2021-09-25] MEDS: Nicotine 21 MG PATCH TD SCH (08:37)
[2021-09-25] MEDS: buPROPion 75 MG TAB PER TUBE SCH ×3 (08:37→23:06)
[2021-09-25] MEDS: Enoxaparin Sodium 40 MG/0.4 ML SYRINGE SC SCH (08:37)
[2021-09-25] MEDS: Docusate Sodium 100 MG/10 ML UDCUP PER TUBE SCH ×2 (08:38→23:11)
[2021-09-25] MEDS: Ascorbic Acid 500 mg Chewable Tablet PER TUBE SCH (08:38)
[2021-09-25] MEDS: Aspirin Chewable 81 MG TAB PER TUBE SCH (08:38)
[2021-09-25] MEDS: Lansoprazole 3 MG/ML ORAL SUSPENSION PER TUBE SCH (08:38)
[2021-09-25] MEDS: Polyethylene Glycol 3350 17 GM Packet PER TUBE SCH (08:39)
[2021-09-25] MEDS: Scopolamine 1.5 mg/72 hour Patch TD SCH (23:06)
[2021-09-25] MEDS: Atorvastatin Calcium 40 MG TAB PER TUBE SCH (23:06)
[2021-09-25] MEDS: traZODone HCl 50 MG TAB PER TUBE PRN (23:10)
[2021-09-26] MEDS: Aspirin Chewable 81 MG TAB PER TUBE SCH (09:31)
[2021-09-26] MEDS: Polyethylene Glycol 3350 17 GM Packet PER TUBE SCH (09:32)
[2021-09-26] MEDS: buPROPion 75 MG TAB PER TUBE SCH ×3 (09:32→21:33)
[2021-09-26] MEDS: Enoxaparin Sodium 40 MG/0.4 ML SYRINGE SC SCH (09:32)
[2021-09-26] MEDS: Nicotine 21 MG PATCH TD SCH (09:32)
[2021-09-26] MEDS: Ascorbic Acid 500 mg Chewable Tablet PER TUBE SCH (09:32)
[2021-09-26] MEDS: Docusate Sodium 100 MG/10 ML UDCUP PER TUBE SCH ×2 (09:32→22:56)
[2021-09-26] MEDS: Lansoprazole 3 MG/ML ORAL SUSPENSION PER TUBE SCH (09:37)
[2021-09-26] MEDS: Acetaminophen 650 MG/20.3 ML UDCUP PER TUBE PRN (13:37)
[2021-09-26] MEDS: traZODone HCl 50 MG TAB PER TUBE PRN (21:33)
[2021-09-26] MEDS: Atorvastatin Calcium 40 MG TAB PER TUBE SCH (21:33)
[2021-09-27] MEDS: Nicotine 21 MG PATCH TD SCH (09:17)
[2021-09-27] MEDS: Ascorbic Acid 500 mg Chewable Tablet PER TUBE SCH (09:17)
[2021-09-27] MEDS: Aspirin Chewable 81 MG TAB PER TUBE SCH (09:17)
[2021-09-27] MEDS: Enoxaparin Sodium 40 MG/0.4 ML SYRINGE SC SCH (09:17)
[2021-09-27] MEDS: Lansoprazole 3 MG/ML ORAL SUSPENSION PER TUBE SCH (09:17)
[2021-09-27] MEDS: Docusate Sodium 100 MG/10 ML UDCUP PER TUBE SCH ×2 (09:18→20:40)
[2021-09-27] MEDS: buPROPion 75 MG TAB PER TUBE SCH ×3 (09:18→20:40)
[2021-09-27] MEDS: Polyethylene Glycol 3350 17 GM Packet PER TUBE SCH (09:18)
[2021-09-27] MEDS: Guaifenesin DM 100-10/5 ML UDCUP PER TUBE PRN (09:19)
[2021-09-27] MEDS: Metoclopramide 10 MG/10 ML UDCUP PO SCH (20:39)
[2021-09-27] MEDS: Atorvastatin Calcium 40 MG TAB PER TUBE SCH (20:40)
[2021-09-27] MEDS: traZODone HCl 50 MG TAB PER TUBE PRN (20:40)
[2021-09-28] MEDS: Enoxaparin Sodium 40 MG/0.4 ML SYRINGE SC SCH (09:11)
[2021-09-28] MEDS: Metoclopramide 10 MG/10 ML UDCUP PO SCH ×3 (09:11→18:21)
[2021-09-28] MEDS: buPROPion 75 MG TAB PER TUBE SCH ×2 (09:11→14:36)
[2021-09-28] MEDS: Aspirin Chewable 81 MG TAB PER TUBE SCH (09:12)
[2021-09-28] MEDS: Lansoprazole 3 MG/ML ORAL SUSPENSION PER TUBE SCH (09:12)
[2021-09-28] MEDS: Ascorbic Acid 500 mg Chewable Tablet PER TUBE SCH (09:12)
[2021-09-28] MEDS: Nicotine 21 MG PATCH TD SCH (09:12)
[2021-09-28] MEDS: Polyethylene Glycol 3350 17 GM Packet PER TUBE SCH (09:28)
[2021-09-28] MEDS: Docusate Sodium 100 MG/10 ML UDCUP PER TUBE SCH (09:28)
[2021-09-28 16:14] VITALS: TEMP 98.3
[2021-09-28 16:41] VITALS: BP 140/96
== END 2021-09-28 19:38 | DRG 64 ==
LOC: ERS 11:02 → ERHOLD 12:37 → NEURO 15:12 → OBSVTOIN 09-16 09:28 → IMCU/EMU 09-17 15:48 → NEURO 09-18 16:14
PROVIDERS: ADMIT Internal Medicine; ATTEND Internal Medicine
PROC: 30233N1 Transfusion of Nonautologous Red Blood Cells into Peripheral Vein, Percutaneous Approach (ICD-10-PCS; principal; 2021-09-16)
PROC: 0W3P8ZZ Control Bleeding in Gastrointestinal Tract, Via Natural or Artificial Opening Endoscopic (ICD-10-PCS; 2021-09-18)
PROC: 0DH63UZ Insertion of Feeding Device into Stomach, Percutaneous Approach (ICD-10-PCS; 2021-09-18)
DX: I63.81 Other cerebral infarction due to occlusion or stenosis of small artery (principal); K31.811 Angiodysplasia of stomach and duodenum with bleeding; J69.0 Pneumonitis due to inhalation of food and vomit; I69.954 Hemiplegia and hemiparesis following unspecified cerebrovascular disease affecting left non-dominant side; D62 Acute posthemorrhagic anemia; Z20.822 Contact with and (suspected) exposure to COVID-19; F17.210 Nicotine dependence, cigarettes, uncomplicated; E78.00 Pure hypercholesterolemia, unspecified; R47.1 Dysarthria and anarthria; I10 Essential (primary) hypertension; D57.1 Sickle-cell disease without crisis; R13.12 Dysphagia, oropharyngeal phase; D50.9 Iron deficiency anemia, unspecified; E04.1 Nontoxic single thyroid nodule; R29.704 NIHSS score 4; K59.00 Constipation, unspecified; G47.00 Insomnia, unspecified; Z79.82 Long term (current) use of aspirin; Z79.899 Other long term (current) drug therapy
CPT/HCPCS: 36415; 36416; 36430; 70450; 70496; 70498; 70551; 71045; 74230; 80048; 80053; 80061; 82728; 83021; 83540; 83550; 84484; 85025; 85046; 85610; 85730; 86850; 86900; 86901; 93005; 93306; 94640; 94760; C9113; G0378; J0696; J1200; J1650; J2060; J2704; J2916; J3490; J7050; J7620; P9016; Q9967; U0003; U0005

== ENCOUNTER 2022-03-22 17:49 | Inpatient (IN) | payer MEDICARE ==
[2022-03-22 18:41] LABS: Prothrombin Time 13.7 sec (12.0-14.7)
[2022-03-22 18:42] LABS: ALT (SGPT) 25 U/L (8-55); AST (SGOT) 24 U/L (5-34); Albumin 4.1 g/dL (3.4-4.8); Anion Gap 14 mmol/L (10-20); BUN (Urea Nitrogen) 13 mg/dL (8.4-25.7); Bilirubin, Total 0.3 mg/dL (0.2-1.2); Calc. Creatinine Clearance 0 mL/min (70-130); Calcium 8.9 mg/dL (7.8-10.44); Carbon Dioxide 19 mmol/L (23-31); Chloride 108 mmol/L (98-107); Estimated GFR 51; Globulin 3.1 g/dL (2.4-3.5); Glucose 106 mg/dL (83-110); Protein, Total 7.2 g/dL (5.8-8.1); Sodium 137 mmol/L (136-145)
[2022-03-22 18:44] LABS: Alkaline Phosphatase 98 U/L (40-110)
[2022-03-22 18:48] LABS: Band 5 % (5-11); Eosinophils 2 % (0-10); Hemoglobin 13.1 g/dL (14.0-18.0); Lymphocytes 6 % (21-51); MDiff Complete? YES; Mean Corpuscular HGB CONC 32.2 g/dL (32.0-36.0); Mean Corpuscular Hemoglobin 24.8 pg (27.0-31.0); Mean Corpuscular Volume 77.1 fl (78.0-98.0); Monocytes 20 % (0-10); Neutrophil 67 % (42-75); Platelet Count 222 10x3/uL (130-400); RBC Distribution Width 18.6 % (11.5-14.5); Red Blood Cell (RBC) Count 5.27 mill/uL (4.70-6.10); White Blood Cell (WBC) Count 7.8 10x3/uL (4.8-10.8)
[2022-03-22 19:11] LABS: Bilirubin Negative (Negative); Blood, Urine Negative (Negative); Clarity Turbid (Clear); Glucose, Urine (Dipstick) Normal (Negative); Ketone, Urine Negative (Negative); Leukocyte 75 Leu/uL (Negative); Nitrite 1+ (Negative); Protein, Urine (Dipstick) Negative (Neg-Trace); RBC/HPF 0-3 HPF (0-3); Specific Gravity, Urine 1.013 (1.002-1.036); Squamous Epithelial 0-3 HPF (0-3); Urobilinogen Normal mg/dL (Less than 2); pH, Urine 7.5 (5.0-9.0)
[2022-03-22] MEDS ORDERED: Acetaminophen 325 MG TAB ONE ×2 (19:16→19:21)
[2022-03-22 19:17] LABS: Bacteria/HPF 2+ HPF (None Seen)
[2022-03-22 20:29] LABS: SARS-CoV-2 NAA Rapid Test DETECTED (NotDetected)
[2022-03-22] MEDS ORDERED: cefTRIAXone\\ROCEPHIN 2 GM VIAL ONE (20:58)
[2022-03-22] MEDS ORDERED: Azithromycin 500 MG VIAL ONE (21:29)
[2022-03-22] MEDS ORDERED: Senokot S 8.6-50 MG TAB PO PRN (21:50)
[2022-03-22] MEDS ORDERED: Acetaminophen 325 MG TAB PO PRN (21:50)
[2022-03-22] MEDS ORDERED: Sodium Chloride 0.9% 1,000 ML IV SCH (22:00)
[2022-03-23 06:01] LABS: Anion Gap 13 mmol/L (10-20); BUN (Urea Nitrogen) 12 mg/dL (8.4-25.7); Calc. Creatinine Clearance 0 mL/min (70-130); Calcium 8.1 mg/dL (7.8-10.44); Carbon Dioxide 18 mmol/L (23-31); Chloride 112 mmol/L (98-107); Estimated GFR 55; Glucose 98 mg/dL (83-110); Potassium 4.4 mmol/L (3.5-5.1); Sodium 139 mmol/L (136-145)
[2022-03-23 06:33] LABS: Mean Corpuscular Hemoglobin 25.1 pg (27.0-31.0); Mean Corpuscular Volume 78.3 fl (78.0-98.0); Mean Platelet Volume 10.5 fL (7.4-10.4); Platelet Count 190 10x3/uL (130-400); RBC Distribution Width 18.4 % (11.5-14.5); Red Blood Cell (RBC) Count 4.79 mill/uL (4.70-6.10); White Blood Cell (WBC) Count 6.2 10x3/uL (4.8-10.8)
[2022-03-23 07:51] LABS: Band 12 % (5-11); Lymphocytes 21 % (21-51); MDiff Complete? YES; Monocytes 6 % (0-10); Neutrophil 61 % (42-75); Platelet Morphology Comment Appears Adequate; Polychromasia SLIGHT = 2-3 cells (100X) (0-2/hpf)
[2022-03-23] MEDS ORDERED: Famotidine/PF 20 mg/2ml Vial ONE (09:15)
[2022-03-23] MEDS ORDERED: Aspirin Chewable 81 MG TAB ONE (09:15)
[2022-03-23] MEDS ORDERED: Famotidine 20 MG TAB ONE (09:28)
[2022-03-23] MEDS: Aspirin Chewable 81 MG TAB PER TUBE SCH (09:31)
[2022-03-23] MEDS: Famotidine 20 MG TAB PO SCH ×2 (09:31→20:10)
[2022-03-23] MEDS: Heparin 5,000 UNITS/ML VIAL SC SCH ×3 (09:32→20:10)
[2022-03-23] MEDS ORDERED: Sodium Bicarb 50 MEQ/50 ML VIAL IVP SCH (10:45)
[2022-03-23] MEDS ORDERED: Sodium Bicarb 50 MEQ/50 ML VIAL ONE (13:55)
[2022-03-23] MEDS ORDERED: cefTRIAXone\\ROCEPHIN 2 GM in Sodium Chloride 0.9% 100 ML IVPB SCH (21:00)
[2022-03-23] MEDS ORDERED: Atorvastatin Calcium 40 MG TAB PER TUBE SCH (21:00)
[2022-03-24 08:19] VITALS: TEMP 98.5
[2022-03-24] MEDS: Famotidine 20 MG TAB PO SCH (08:49)
[2022-03-24] MEDS: Aspirin Chewable 81 MG TAB PER TUBE SCH (08:49)
[2022-03-24] MEDS: Heparin 5,000 UNITS/ML VIAL SC SCH ×2 (08:49→14:56)
[2022-03-24 12:34] VITALS: BP 133/82
== END 2022-03-24 16:05 | disposition home or self-care (01) | DRG 871 ==
LOC: ERS 17:49 → T4-A 21:30 → ERHOLD 21:53 → T4-A 03-23 15:25
PROVIDERS: ADMIT Student in an Organized Health Care Education/Training Program; ATTEND Family Medicine
PROC: 8E0ZXY6 Isolation (ICD-10-PCS; principal; 2022-03-22)
PROC: 3E03329 Introduction of Other Anti-infective into Peripheral Vein, Percutaneous Approach (ICD-10-PCS; 2022-03-22)
DX: A41.9 Sepsis, unspecified organism (principal); G93.41 Metabolic encephalopathy; U07.1 COVID-19; I69.954 Hemiplegia and hemiparesis following unspecified cerebrovascular disease affecting left non-dominant side; N39.0 Urinary tract infection, site not specified; E87.20 Acidosis, unspecified; N48.1 Balanitis; N18.9 Chronic kidney disease, unspecified; Z87.891 Personal history of nicotine dependence; Z79.899 Other long term (current) drug therapy; Z79.82 Long term (current) use of aspirin
CPT/HCPCS: 36415; 36416; 70450; 70551; 71045; 80048; 80053; 81003; 81015; 83605; 84145; 84484; 85025; 85610; 85730; 87040; 87086; 93005; 94760; 96374; 96375; J0456; J0696; J1644; J3490; J7050; S0028

== ENCOUNTER 2022-07-16 10:35 | Outpatient (CLI) | payer OTHER ==
[2022-07-16 12:24] LABS: Mean Corpuscular HGB CONC 31.7 g/dL (32.0-36.0); Mean Corpuscular Hemoglobin 24.8 pg (27.0-33.0); Mean Corpuscular Volume 78.2 fl (81.2-95.1); Mean Platelet Volume 10.3 fl (7.4-10.4); Platelet Count 306 10x3/uL (150-450); RBC Distribution Width 16.2 % (11.5-14.5); Red Blood Cell (RBC) Count 5.24 10x6/uL (4.32-5.72); White Blood Cell (WBC) Count 7.3 10x3/uL (3.5-10.5)
[2022-07-16 12:29] LABS: Bilirubin Neg (Negative); Blood, Urine 10 (Negative); Clarity Cloudy (Clear); Glucose, Urine (Dipstick) Normal (Negative); Ketone, Urine Negative (Negative); Leukocyte 500 (Negative); Nitrite Negative (Negative); Protein, Urine (Dipstick) Negative (Neg-Trace); Specific Gravity, Urine 1.015 (1.005-1.030); Urobilinogen Normal mg/dL (Less than 2)
[2022-07-16 12:31] LABS: INR-International Normal Ratio 0.9; PTT 28.2 sec (22.0-33.0); Prothrombin Time 10.3 sec (9.5-12.1)
[2022-07-16 12:33] LABS: Anion Gap 14 mmol/L (10-20); BUN (Urea Nitrogen) 14 mg/dL (8.4-25.7); Calc. Creatinine Clearance 0 mL/min (70-130); Calcium 9.1 mg/dL (7.8-10.44); Carbon Dioxide 22 mmol/L (23-31); Chloride 111 mmol/L (98-107); Estimated GFR 53; Glucose 69 mg/dL (83-110); Potassium 4.1 mmol/L (3.5-5.1); Sodium 143 mmol/L (136-145)
[2022-07-16 13:09] LABS: RBC/HPF 0-3 HPF (0-3); WBC/HPF 21-50 HPF (0-3)
[2022-07-16 13:10] LABS: Bacteria/HPF 4+ HPF (None Seen)
== END 2022-07-16 10:36 | disposition home or self-care (01) ==
LOC: LABBT 10:35
PROVIDERS: ATTEND Urology
DX: Z01.818 Encounter for other preprocedural examination (principal); N47.1 Phimosis
CPT/HCPCS: 80048; 81001; 85027; 85610; 85730; 87077; 87086; 93005; 93010

== ENCOUNTER 2022-07-29 07:32 | Day surgery (SDC) | payer OTHER ==
[2022-07-27 12:50] VITALS: BMI 23.7
[2022-07-29] MEDS ORDERED: Phenylephrine 10 MG/ML VIAL ONE (11:40)
[2022-07-29] MEDS ORDERED: Lidocaine 1% PF 5 ML VIAL ONE (11:40)
[2022-07-29] MEDS ORDERED: PROPOFOL 200 MG/20 ML VIAL ONE (11:40)
[2022-07-29] MEDS ORDERED: Ondansetron PF 4 MG/2 ML Vial ONE (11:40)
[2022-07-29] MEDS ORDERED: GLYCOPYRROLATE/PF 0.2 MG/ML VIAL ONE (11:40)
[2022-07-29] MEDS ORDERED: Dexamethasone 20 MG/5 ML VIAL ONE (11:40)
[2022-07-29] MEDS ORDERED: Bacitracin Zinc Ointment 30 gm TUBE ONE (12:43)
[2022-07-29] MEDS ORDERED: Bupivacaine 0.25% HCL 30 ML VIAL ONE (12:43)
[2022-07-29] MEDS ORDERED: fentaNYL 50 mcg/mL 1 mL Vial ONE (12:51)
[2022-07-29] MEDS ORDERED: Sodium Chloride 0.9% 100 ML ONE (12:57)
[2022-07-29] MEDS ORDERED: CEFAZOLIN 2 GM VIAL ONE (12:57)
== END 2022-07-29 16:09 | disposition home or self-care (01) ==
LOC: SDC 07:32
PROVIDERS: ATTEND Urology
PROC: 0VTTXZZ Resection of Prepuce, External Approach (ICD-10-PCS; principal; 2022-07-29)
DX: N47.1 Phimosis (principal); N48.0 Leukoplakia of penis; N32.81 Overactive bladder; N18.30 Chronic kidney disease, stage 3 unspecified; F10.11 Alcohol abuse, in remission; Z86.73 Personal history of transient ischemic attack (TIA), and cerebral infarction without residual deficits; Z87.891 Personal history of nicotine dependence; Z79.82 Long term (current) use of aspirin; Z79.899 Other long term (current) drug therapy; Z90.49 Acquired absence of other specified parts of digestive tract
CPT/HCPCS: 88304; J1100; J2370; J2405; J2704; J3010; J3490; S0020

== ENCOUNTER 2023-01-04 10:47 | Outpatient (CLI) | payer MEDICARE | END 2023-01-04 10:48 | disposition home or self-care (01) | LOC: BICCT 10:47 | PROVIDERS: ATTEND Family Medicine | DX: Z12.2 Encounter for screening for malignant neoplasm of respiratory organs (principal); F17.210 Nicotine dependence, cigarettes, uncomplicated; J84.10 Pulmonary fibrosis, unspecified; J43.9 Emphysema, unspecified; E04.2 Nontoxic multinodular goiter; I25.10 Atherosclerotic heart disease of native coronary artery without angina pectoris; I70.8 Atherosclerosis of other arteries; K76.9 Liver disease, unspecified; S32.009A Unspecified fracture of unspecified lumbar vertebra, initial encounter for closed fracture; S22.009A Unspecified fracture of unspecified thoracic vertebra, initial encounter for closed fracture; R59.0 Localized enlarged lymph nodes; R91.1 Solitary pulmonary nodule | CPT/HCPCS: 71271 ==